=== PATIENT | male | born 2000 | race African-American/Black ===

== ENCOUNTER 2020-05-30 16:45 | Emergency (ER) | payer BC, SELFPAY ==
--- NOTE | ~2020-05-30 | XR_ITS ---
EXAMINATION: XR elbow RT min 3V DATE: 05/30/2020 17:08 INDICATION: Right elbow infection. Fall one month ago. TECHNIQUE: 4 views of right elbow were obtained. COMPARISON: None. FINDINGS: Bone alignment is normal. No fracture. Joint spaces are well maintained. There is no elbow joint effusion. There is soft tissue swelling around the elbow. IMPRESSION: 1. No evidence of osteomyelitis. Reviewed, dictated and finalized at location A. [employer] STATEMENT CLERK
[2020-05-30 16:48] VITALS: BP 150/73; PULSE 77; RESP 16; TEMP 36.1; O2SAT 98
--- NOTE | 2020-05-30 16:53 | ED.UPPEXIN ---
HPI - Extremity Injury (Upper) General Chief Complaint: Extremity Injury, Upper Stated Complaint: wound to right elbow Time Seen by Provider: 05/30/20 16:53 History of Present Illness HPI narrative: 20 yo male presents to the ED for an elbow wound. He sustained an abrasion to the elbow playing basketball about 3 weeks ago. Since that time it has started swell, which is now spreading up the forearm. He also reports copious drainage from the wound. He denies any systemic symptoms. Related Data Allergies Allergy/AdvReac Type Severity Reaction Status Date / Time shellfish derived Allergy Unknown Verified 05/30/20 17:06 Review of Systems Review of Systems: All systems reviewed & are unremarkable except as noted in HPI and below Constitutional: Constitutional: Denies chills and Denies fever(s) Eyes: Eyes: Reports no additional eye complaints Cardiovascular: Cardiovascular: Denies chest pain Respiratory: Respiratory: Denies dyspnea Gastrointestinal: Gastrointestinal: Denies nausea Musculoskeletal: Musculoskeletal: Denies back pain Neurologic: Denies numbness and Denies weakness [facility] Past Medical History Medical History (Updated 05/30/20 @ 18:50 by Chris Hayward MD) Healthy adult male Social History Social History Gender identity (if verbalized by the patient): Male Exam Const: General: healthy appearing, no acute distress and alert Orientation/consciousness: patient oriented x3 HENMT: Head: normal to inspection Resp: Effort & Inspection: normal respiratory effort Auscultation: clear to auscultation bilaterally, no rales, no rhonchi and no wheezes Cardio: Jugular venous distension: no JVD Rate: regular rate Rhythm: regular rhythm Heart sounds: no murmurs Skin: General skin exam: normal color Neuro: General: patient oriented x3, moves all extremities, no focal motor deficits and CN's II-XI intact bilaterally Speech: normal speech Gait exam (Neuro): Normal gait present Extrem: Other: edema and mild erythema covering 2/3 to dorsal surface of the right forearm. fluctuance just distal to the elbow. 1 cm draining wound at the elbow. Psych: Appearance: well kempt Affect: normal affect Course Vital Signs Vital signs: Vital Signs Temperature 36.1 C L 05/30/20 16:48 Pulse Rate 77 05/30/20 16:48 Respiratory Rate 16 05/30/20 16:48 Blood Pressure 150/73 H 05/30/20 16:48 Pulse Oximetry 98 05/30/20 16:48 Temperature 36.1 C L 05/30/20 16:48 Pulse Rate 88 05/30/20 18:35 Respiratory Rate 20 05/30/20 18:35 Blood Pressure 148/80 H 05/30/20 18:35 Pulse Oximetry 99 05/30/20 18:35 Procedures Abscess I/D upper extremity: Date of Incision: 05/30/20 Side (if applicable): right Local Anesthetic: lidocaine 1% and with epi Amount of anesthesia used (mL): 5 Technique: incised with #11 blade Amount of fluid expressed (mL): 5 Irrigation: Yes Packing used?: iodoform I&D Results: Other (mixture of purulent and serous fluid) MDM - Extremity Injury (Upper) Imaging Data Radiologist's impression: ITS Impressions Elbow X-Ray 05/30/20 17:09 IMPRESSION: 1. No evidence of osteomyelitis. Discharge Plan Discharge Clinical Impression: Septic bursitis of elbow Qualifiers: Laterality: right Qualified Code(s): M71.121 - Other infective bursitis, right elbow Patient Disposition: Home, Self-Care Condition: Stable Instructions: Antibiotic Form, Elbow Bursitis (ED) Additional Instructions: Remove packing in 48 hours Prescriptions: New sulfamethoxazole-trimethoprim [Bactrim DS] 800-160 mg tablet 1 tablet PO Q12H Qty: 20 RF: 0 Follow-up/Referrals: Tamika Urban DO [Physician] - PHYSICIAN NOT ON STAFF,NONSTAFF [Non-Staff] -
[2020-05-30 17:08] VITALS: BP 155/96; PULSE 94; RESP 20; O2SAT 100
[2020-05-30 17:25] VITALS: BP 155/96; PULSE 94; RESP 20; O2SAT 100
[2020-05-30 18:35] VITALS: BP 148/80; PULSE 88; RESP 20; O2SAT 99
== END 2020-05-30 18:40 | disposition home or self-care (01) ==
PROVIDERS: Emergency Provider Emergency Medicine
DX: M71.121 Other infective bursitis, right elbow (principal)
CPT/HCPCS: 10061; 73080; 99283; A9270